=== PATIENT | male | born 1980 | race American Indian/Alaskan Native ===

== ENCOUNTER 2019-05-30 08:14 | Emergency (ER) | payer SELFPAY ==
[2019-05-30 08:21] VITALS: BP 136/79
[2019-05-30] MEDS ORDERED: IBUPROFEN PO ONE (09:47)
--- NOTE | 2019-05-30 10:11 | Emergency Department Report ---
ED Laceration HPI - HPI Chief Complaint: Extremity Injury, Upper Stated Complaint: INJURED FINGER Time Seen by Provider: 05/30/19 09:33 Location: Upper Extremity Tetanus Status: Up to Date Laceration Symptoms: Yes Foreign Body Sensation, Yes Pain, No Numbness, No Weakness Other History: Is a 39-year-old male with no problems with low history presents to ED complaining of right index finger pain from laceration he sustained about 2 weeks ago. Patient states that he is having pain to where it laceration was. Patient denies fever/chills/nausea vomiting ED Review of Systems ROS: Stated complaint: INJURED FINGER Other details as noted in HPI Comment: All other systems reviewed and negative ED Past Medical Hx - Past Medical History Previous Medical History?: No - Surgical History Past Surgical History?: No - Social History Smoking Status: Current Every Day Smoker Substance Use Type: Alcohol, Marijuana - Medications Home Medications: Home Medications Medication Instructions Recorded Confirmed Last Taken Type Ibuprofen [Motrin 800 MG tab] 800 mg PO TID #20 tablet 05/30/19 Unknown Rx cephALEXin [Keflex] 500 mg PO Q12HR #10 cap 05/30/19 Unknown Rx Laceration Physical Exam - Exam General: Vital signs noted. No distress. Alert and acting appropriately. Wound Length (cm): 1 Laceration Location: Upper Extremity Laceration Exam: Yes Normal Distal CMS, No Foreign Body, No Exposed Tendon, Vessel, or Nerve, No Tendon Injury ED Course Vital Signs 05/30/19 08:19 Temperature 98.5 F Pulse Rate 100 H Respiratory 18 Rate Blood Pressure 136/79 O2 Sat by Pulse 97 Oximetry ED Medical Decision Making - Medical Decision Making 39-year-old male presented with a rate in this finger pain from a healing laceration that happened 2 weeks ago. Patient is in no acute distress. Fluids well healed. Patient had no swelling, erythematous or pus from wound. Patient received 800 mg Motrin ED. Sounds are normal patient is not acute distress. I discussed the patient he will get couple of days of antibiotics Critical care attestation.: If time is entered above; I have spent that time in minutes in the direct care of this critically ill patient, excluding procedure time. ED Disposition Clinical Impression: Finger pain, right Disposition: [id number] TO HOME OR SELFCARE Is pt being admited?: No Does the pt Need Aspirin: No Condition: Stable Instructions: Finger Laceration (ED), Abrasion (ED) Additional Instructions: Make sure to follow up with the primary care physician as discussed. Take all your medications as you've been prescribed. If you have any worsening symptoms or develop new symptoms please return to ED immediately. Prescriptions: cephALEXin [Keflex] 500 mg PO Q12HR #10 cap Ibuprofen [Motrin 800 MG tab] 800 mg PO TID #20 tablet Referrals: SANDY HERNÁNDEZ MD [Primary Care Provider] - 3-5 Days [facility] [Outside] - 3-5 Days [facility] [Outside] - 3-5 Days Forms: Work/School Release Form(ED) Time of Disposition: 10:14
== END 2019-05-30 10:39 | disposition home or self-care (01) ==
LOC: ED 08:14
DX: S61.210A Laceration without foreign body of right index finger without damage to nail, initial encounter (principal); F17.200 Nicotine dependence, unspecified, uncomplicated; F12.10 Cannabis abuse, uncomplicated; Z79.899 Other long term (current) drug therapy; X58.XXXA Exposure to other specified factors, initial encounter; Y93.89 Activity, other specified; Y92.89 Other specified places as the place of occurrence of the external cause; Y99.8 Other external cause status
CPT/HCPCS: 99282